=== PATIENT | female | born 1995 | race African-American/Black ===

== ENCOUNTER 2017-08-21 13:49 | Emergency (ER) | payer MEDICAID ==
[~2017-08-21] VITALS: Ht 165.1 cm; Wt 115.0 kg
[2017-08-21] MEDS ORDERED: SODIUM CHLORIDE 0.9% 1,000 ML IV SCH (14:08)
[2017-08-21] MEDS ORDERED: METHYLPREDNISOLONE SOD SUCC 125 MG/2 ML VIAL IV ONE (14:15)
[2017-08-21] MEDS ORDERED: ALBUTEROL (0.5%) 2.5MG/0.5ML NEB HHN ONE (14:15)
[2017-08-21] MEDS ORDERED: FAMOTIDINE 20MG/2ML VIAL IV ONE (14:15)
[2017-08-21 14:48] LABS: BASOPHILS % 0.4 % (0.0-2.0); EOSINOPHILS % 0.5 % (0.0-5.0); HEMATOCRIT. 36.7 % (36.0-48.0); HEMOGLOBIN. 11.9 g/dL (12.0-16.0); LYMPHOCYTES % 28.7 % (20.0-50.0); MEAN CORPUSCULAR HEMOGLOBIN 24.2 pg (28.0-32.0); MEAN CORPUSCULAR VOLUME 74.3 fL (81.0-99.0); MEAN PLATELET VOLUME 6.9 fl (7.4-10.4); MONOCYTES % 4.1 % (2.0-8.0); NEUTROPHILS % 66.3 % (40.0-76.0); PLATELET 370 x1000/uL (130-400); RED BLOOD CELL COUNT 4.93 mill/uL (4.2-5.4); RED CELL DISTRIBUTION WIDTH 16.6 % (11.6-14.6)
[2017-08-21 14:53] LABS: CHLORIDE 104 mEq/L (98-107)
[2017-08-21 14:57] LABS: CARBON DIOXIDE 27 mEq/L (21-32)
[2017-08-21 15:22] LABS: HCG SCREEN NEGATIVE
[2017-08-21 16:28] VITALS: BP 124/88
== END 2017-08-21 16:33 | disposition home or self-care (01) ==
LOC: ER 14:07
DX: L27.2 Dermatitis due to ingested food (principal); T78.1XXA Other adverse food reactions, not elsewhere classified, initial encounter; D64.9 Anemia, unspecified; J45.909 Unspecified asthma, uncomplicated; Z91.012 Allergy to eggs; Z91.010 Allergy to peanuts; Z91.018 Allergy to other foods; R03.0 Elevated blood-pressure reading, without diagnosis of hypertension
CPT/HCPCS: 36415; 80053; 84703; 85025; 94640; 96361; 96374; 96375; 99285; J2930; J3490; J7030; J7611; Z7610